=== PATIENT | male | born 1960 | race Caucasian/White ===

== ENCOUNTER 2016-10-21 14:13 | Emergency (ER) | payer BC ==
[~2016-10-21] VITALS: Ht 177.8 cm; Wt 92.1 kg
== END 2016-10-21 15:55 | disposition short-term general hospital (02) ==
LOC: ER 14:13
DX: R10.13 Epigastric pain (principal); R07.89 Other chest pain; I48.91 Unspecified atrial fibrillation; K21.9 Gastro-esophageal reflux disease without esophagitis; E78.00 Pure hypercholesterolemia, unspecified; Z79.82 Long term (current) use of aspirin; Z79.899 Other long term (current) drug therapy; Z87.891 Personal history of nicotine dependence
CPT/HCPCS: A9270

== ENCOUNTER 2016-10-24 11:48 | Day surgery (SDC) | payer BC ==
[2016-10-24] MEDS ORDERED: COREG12.5 MG PO (12:02)
[2016-10-24] MEDS ORDERED: RYTHMOL150 MG PO (12:03)
[2016-10-24] MEDS ORDERED: DEXILANT60 MG PO (12:04)
[2016-10-24] MEDS ORDERED: ASPIRIN81 MG PO (12:04)
== END 2016-10-24 17:13 | disposition short-term general hospital (02) ==
LOC: SURGOP 11:48
PROC: 0FT44ZZ Resection of Gallbladder, Percutaneous Endoscopic Approach (ICD-10-PCS; principal; 2016-10-24)
DX: K80.00 Calculus of gallbladder with acute cholecystitis without obstruction (principal); I48.91 Unspecified atrial fibrillation; E78.5 Hyperlipidemia, unspecified; G47.33 Obstructive sleep apnea (adult) (pediatric); K21.9 Gastro-esophageal reflux disease without esophagitis; M19.019 Primary osteoarthritis, unspecified shoulder; Z87.891 Personal history of nicotine dependence; Z82.49 Family history of ischemic heart disease and other diseases of the circulatory system; Z79.82 Long term (current) use of aspirin; Z79.899 Other long term (current) drug therapy; Z98.890 Other specified postprocedural states
CPT/HCPCS: J0330; J0690; J1100; J1885; J2250; J2405; J2710; J2765; J3010

== ENCOUNTER → 2016-11-07 | Outpatient (CLI) | payer BC ==
[~2016-11-07] MED LIST: ASPIRIN81 MG PO; COREG12.5 MG PO; DEXILANT60 MG PO; RYTHMOL150 MG PO
== END | disposition short-term general hospital (02) ==
LOC: CLSURG 07:27
DX: Z48.815 Encounter for surgical aftercare following surgery on the digestive system (principal); Z87.19 Personal history of other diseases of the digestive system; Z90.49 Acquired absence of other specified parts of digestive tract